=== PATIENT | female | born 1980 | race Caucasian/White ===

== ENCOUNTER 2020-07-19 12:24 | Outpatient (CLI) | payer BC | END 2020-07-19 12:25 | disposition home or self-care (01) | LOC: CSHULT 12:24 | PROVIDERS: ATTEND Internal Medicine | DX: E04.1 Nontoxic single thyroid nodule (principal); E04.2 Nontoxic multinodular goiter | CPT/HCPCS: 76536 ==

== ENCOUNTER 2022-10-03 14:58 | Outpatient (CLI) | payer BC | END 2022-10-03 14:59 | disposition home or self-care (01) | LOC: CSHMAMMO 14:58 | PROVIDERS: ATTEND Nurse Practitioner Family | DX: Z12.31 Encounter for screening mammogram for malignant neoplasm of breast (principal); Z91.89 Other specified personal risk factors, not elsewhere classified | CPT/HCPCS: 77063; 77067 ==

== ENCOUNTER 2023-05-19 12:57 | Outpatient (CLI) | payer OTHER | END 2023-05-19 12:58 | disposition home or self-care (01) | LOC: CSHULT 12:57 | PROVIDERS: ATTEND Nurse Practitioner Family | DX: R59.1 Generalized enlarged lymph nodes (principal); R59.0 Localized enlarged lymph nodes | CPT/HCPCS: 76536 ==